=== PATIENT | male | born 1960 | race African-American/Black ===

== ENCOUNTER 2016-11-17 21:34 | Observation (INO) | payer MEDICAID ==
[~2016-11-17] VITALS: Ht 167.6 cm; Wt 110.0 kg
[~2016-11-17 21:34] MED LIST: CYCL-36 PO; IBUP800T23 PO; PERC10TA27 PO
[2016-11-17 21:36] VITALS: BP 132/75; PULSE 89; RESP 16; TEMP 100.4; O2SAT 95
--- NOTE | 2016-11-17 22:11 | PD ---
HPI Chief Complaint: Musculoskeletal Complaint Time Seen by Provider: 22:06 Travel History International Travel<30 days: No Contact w/Intl Traveler<30days: No Traveled to known affect area: No History of Present Illness HPI 56-year-old black male presents to emergency Department with complaints of right leg pain, swelling and redness. He states that he had several blisters on his feet approximately 2 weeks ago which she had broken. He states that he has had worsening pain and swelling since then. He denies drainage. 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 He wears leather boots. His feet have not been wet or soiled. He admits to feeling subjectively febrile , rundown, weak with general malaise. He denies any chest pain or shortness of breath. No nausea vomiting. No abdominal pain or diarrhea. He denies any hypertension or diabetes. He is not up-to-date with immunizations. Symptoms are moderate. There is no alleviating or precipitating factors. PFSH Past Medical History Narrative Medical BPH Cancer: No Cardiovascular Problems: No Diabetes: No Diminished Hearing: No Glaucoma: No Hepatitis: No Hiatal Hernia: No Hypertension: No Respiratory: Yes (sleep apnea) Thyroid Disease: No Tetanus Vaccination: Unknown Past Surgical History Narrative Surgical TURP Genitourinary Surgery: Yes (several direct vision internal urethrotomy) Pacemaker: No Other Surgery: Yes Social History Alcohol Use: No Tobacco Use: No Substance Use: No Allergies-Medications (Allergen,Severity, Reaction): Coded Allergies: No Known Allergies (Verified , 11/17/16) Reported Meds & Prescriptions Reported Meds & Active Scripts Active Review of Systems Except as stated in HPI: all other systems reviewed are Neg Physical Exam Narrative GENERAL: Well-developed, well-nourished in no apparent distress. Nontoxic appearing. HEAD: Normocephalic, atraumatic. EYES: Pupils equal round and reactive. Extraocular motions intact. No scleral icterus. No injection or drainage. ENT: Nose clear. Throat without erythema, tonsillar hypertrophy or exudate. Uvula midline. Airway patent. NECK: Trachea midline. Supple, nontender, moves head freely. No central bony tenderness or spasm. CARDIOVASCULAR: Regular rate and rhythm without murmurs, gallops, or rubs. RESPIRATORY: Clear to auscultation. Breath sounds equal bilaterally. No wheezes , rales, or rhonchi. GASTROINTESTINAL: Abdomen soft, non-tender, nondistended. No hepato-splenomegaly , or palpable masses. No guarding. EXTREMITIES: No clubbing, cyanosis. Examination of the right lower extremity reveals edema, erythema and warmth to the right lower leg from the knee down into the foot. He has healing ruptured blisters to the Lauren aspect of his foot and heel. He has intact dorsalis pedis pulses. The left lower extremity is unremarkable. BACK: Nontender without deformity. No flank tenderness. NEUROLOGICAL: Awake, alert and oriented x 3 .Cranial nerves grossly intact. Motor and sensory grossly within normal limits. Normal speech. Data Data Last Documented VS Vital Signs Date Time Temp Pulse Resp B/P Pulse Ox O2 Delivery O2 Flow Rate FiO2 11/17/16 21:36 100.4 89 16 132/75 95 Room Air Orders Us Leg Venous Doppler (11/17/16 21:57) Complete Blood Count With Diff (11/17/16 21:57) Comprehensive Metabolic Panel (11/17/16 21:57) Prothrombin Time / Inr (Pt) (11/17/16 21:57) Act Partial Throm Time (Ptt) (11/17/16 21:57) C-Reactive Protein (Crp) (11/17/16 21:57) Iv Access Insert/Monitor (11/17/16 21:57) Blood Culture (11/17/16 22:01) Vancomycin Inj (Vancomycin Inj) (11/17/16 22:15) Piperacil-Tazo 4.5 Gm Premix (Zosyn 4.5 (11/17/16 22:15) Tetanus/Diphtheria Tox Adult (Tetanus/Di (11/17/16 22:15) Ibuprofen (Motrin) (11/17/16 23:30) Labs Laboratory Tests Test 11/17/16 22:10 White Blood Count 9.9 TH/MM3 Red Blood Count 4.19 MIL/MM3 Hemoglobin 13.3 GM/DL Hematocrit 38.8 % Mean Corpuscular Volume 92.6 FL Mean Corpuscular Hemoglobin 31.7 PG Mean Corpuscular Hemoglobin 34.2 % Concent Red Cell Distribution Width 14.4 % Platelet Count 207 TH/MM3 Mean Platelet Volume 7.9 FL Neutrophils (%) (Auto) 65.0 % Lymphocytes (%) (Auto) 20.2 % Monocytes (%) (Auto) 11.9 % Eosinophils (%) (Auto) 2.3 % Basophils (%) (Auto) 0.6 % Neutrophils # (Auto) 6.4 TH/MM3 Lymphocytes # (Auto) 2.0 TH/MM3 Monocytes # (Auto) 1.2 TH/MM3 Eosinophils # (Auto) 0.2 TH/MM3 Basophils # (Auto) 0.1 TH/MM3 CBC Comment DIFF FINAL Differential Comment Prothrombin Time 10.3 SEC Prothromb Time International 0.9 RATIO Ratio Activated Partial 26.5 SEC Thromboplast Time Sodium Level 137 MEQ/L Potassium Level 4.1 MEQ/L Chloride Level 105 MEQ/L Carbon Dioxide Level 26.8 MEQ/L Anion Gap 5 MEQ/L Blood Urea Nitrogen 10 MG/DL Creatinine 1.08 MG/DL Estimat Glomerular Filtration 86 ML/MIN Rate Random Glucose 113 MG/DL Calcium Level 8.6 MG/DL Total Bilirubin 0.4 MG/DL Aspartate Amino Transf 18 U/L (AST/SGOT) Alanine Aminotransferase 25 U/L (ALT/SGPT) Alkaline Phosphatase 58 U/L C-Reactive Protein 6.63 MG/DL Total Protein 7.4 GM/DL Albumin 3.2 GM/DL MDM Medical Decision Making Medical Screen Exam Complete: Yes Emergency Medical Condition: Yes Medical Record Reviewed: Yes Interpretation(s) Right lower extremity ultrasound: Negative for DVT. Right inguinal lymph nodes upper limits of normal.CBC & BMP Diagram 11/17/16 22:10 CRP 6.63 Differential Diagnosis MDM: High Differential diagnoses: Abscess, folliculitis, cellulitis, lymphangitis, abrasion, contact dermatitis, DVT Narrative Course IV access is obtained. Routine laboratory test sent for analysis. 2 blood cultures, ultrasound of the lower extremity. Physician Communication Physician Communication The case has been discussed with Dr. MAYS who has agreed to admit the patient to the observation service. Diagnosis Primary Impression: Cellulitis of right leg Admitting Information Admitting Physician Requests: Observation Condition: Stable Maurizio Baxter Nov 17, 2016 22:11
[2016-11-17] MEDS ORDERED: VANCOMYCIN INJ 2,000 MG in SODIUM CHLORID 0.9% 500 ML INJ 500 ML IV ONE (22:15)
[2016-11-17] MEDS ORDERED: TETANUS/DIPHTHERIA TOXOID ADULT 0.5 ML VIAL IM ONE (22:15)
[2016-11-17] MEDS ORDERED: PIPERACIL-TAZO 4.5 GM PREMIX 100 ML IV ONE (22:15)
[2016-11-17 22:33] LABS: AUTOMATED NEUTROPHIL # 6.4 TH/MM3 (1.8-7.7); BASOPHIL # 0.1 TH/MM3 (0-0.2); BASOPHIL % 0.6 % (0.0-2.0); EOSINOPHIL # 0.2 TH/MM3 (0-0.4); EOSINOPHIL % 2.3 % (0.0-4.0); HEMATOCRIT 38.8 % (39.0-51.0); HEMO FLAGS DIFF FINAL; LYMPH % 20.2 % (9.0-44.0); MEAN CELL VOLUME 92.6 FL (80.0-100.0); MEAN CORPUSCULAR HEMOGLOBIN 31.7 PG (27.0-34.0); MEAN CORPUSCULAR HGB CONC 34.2 % (32.0-36.0); MONO % 11.9 % (0.0-8.0); PLATELET COUNT 207 TH/MM3 (150-450); RED BLOOD COUNT 4.19 MIL/MM3 (4.50-5.90); RED CELL DISTRIBUTION WIDTH 14.4 % (11.6-17.2); WHITE BLOOD COUNT 9.9 TH/MM3 (4.0-11.0)
[2016-11-17 22:41] LABS: APTT (PATIENT) 26.5 SEC (24.3-30.1); INTERNATIONAL NORMALIZED RATIO 0.9 RATIO; PROTHROMBIN TIME - PATIENT 10.3 SEC (9.8-11.6)
[2016-11-17 23:05] LABS: ANION GAP 5 MEQ/L (5-15); AST (GOT) 18 U/L (15-37); BICARBONATE 26.8 MEQ/L (21.0-32.0); BLOOD UREA NITROGEN 10 MG/DL (7-18); CHLORIDE 105 MEQ/L (98-107); GLOMERULAR FILTRATION RATE 86 ML/MIN (>89); POTASSIUM 4.1 MEQ/L (3.5-5.1); SODIUM (NA) 137 MEQ/L (136-145)
[2016-11-17 23:09] LABS: ALKALINE PHOSPHATASE 58 U/L (45-117); ALT (GPT) 25 U/L (12-78); TOTAL BILIRUBIN ADULT 0.4 MG/DL (0.2-1.0)
--- NOTE | 2016-11-17 23:29 | RADRPT ---
EXAM DATE/TIME: 11/17/2016 22:28 [place] COMPARISON: No previous studies available for comparison. INDICATIONS : Pain. MEDICAL HISTORY : Sleep apnea. SURGICAL HISTORY : Several direct vision internal urethrotomy. ENCOUNTER: Initial ACUITY: 1 week PAIN SCORE: 5/10 LOCATION: Right leg TECHNIQUE: Venous ultrasound of the leg was performed from the inguinal ligament to the proximal calf. Real-alejandra e, color Doppler and spectral tracing, compression and augmentation techniques were used. FINDINGS: There is normal compressibility of the deep venous system from the inguinal region to the proximal ca lf. No echogenic clot is seen in the lumen of the common femoral, femoral, popliteal, and posterior tibial veins. There is a normal response of the venous system to proximal and distal augmentation an d respiration. There are right inguinal lymph nodes that measure up to 8 x 19 x 27 mm. CONCLUSION: No DVT of the right lower extremity. Upper limits of normal nonspecific right inguinal lymph nodes. Charly Meredith MD on November 17, 2016 at 23:27 Board Certified Radiologist. This report was verified electronically.
[2016-11-17] MEDS ORDERED: IBUPROFEN 600 MG TAB PO ONE (23:30)
[2016-11-18] MEDS ORDERED: NALOXONE HCL 0.4 MG/ML AMP IV PRN
[2016-11-18] MEDS ORDERED: SODIUM CHLORIDE 0.9% FLUSH 5 ML FLUSH FLUSH PRN
--- NOTE | 2016-11-18 01:03 | HHI.HP ---
[facility] No Primary Care Physician Admission Diagnosis right lower extremity cellulitis Diagnoses: Chief Complaint: right leg pain and swelling Travel History International Travel<30 Days: No Contact w/Intl Traveler <30 Da: No Traveled to Known Affected Are: No History of Present Illness 56-year-old male with a history of BPH and sleep apnea presented with to the ED with complaints of redness and swelling to right lower extremity. Patient states the swelling and redness began about a week ago and continued to get worse. He does state he drives long distances for work near [place]. 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 He states he developed fevers yesterday. He denies any chest pain, sob, nausea or vomiting. No history of MRSA infection Patient does not have a PCP Review of Systems Constitutional: COMPLAINS OF: Fever, DENIES: Chills Respiratory: DENIES: Sputum production, Shortness of breath Cardiovascular: COMPLAINS OF: Lower Extremity Edema, DENIES: Chest pain, Palpitations Gastrointestinal: DENIES: Constipation, Diarrhea, Nausea, Vomiting Genitourinary: DENIES: Hematuria, Dysuria Musculoskeletal: DENIES: Back pain, Neck pain Integumentary: DENIES: Rash Hematologic/lymphatic: DENIES: Lymphadenopathy Immunologic/allergic: DENIES: Urticaria Neurologic: DENIES: Headache, Localized weakness Past Family Social History Past Medical History BPH Sleep apnea Past Surgical History TURP Urethral dilation Reported Medications Reported Meds & Active Scripts Active Allergies: Coded Allergies: No Known Allergies (Verified , 11/17/16) Active Ordered Medications Current Medications Medications (Trade) Dose Ordered Sig/[place] Route Start Time Stop Time Status Last Admin (NS Flush) 2 ml UNSCH PRN FLUSH 11/18/16 00:00 (NS Flush) 2 ml BID FLUSH 11/18/16 09:00 (Lovenox Inj) 40 mg Q24H SQ 11/18/16 09:00 Naloxone HCl 0.4 mg 0.4 mg UNSCH PRN IV 11/18/16 00:00 (Cleocin Inj/NS Inj) 106 ml @ 212 mls/hr Q6H IV 11/18/16 06:00 Family History Patient denies any family history Social History Tobacco use: denies Alcohol use: denies Illicit drug use: denies Physical Exam Vital Signs Vital Signs Date Time Temp Pulse Resp B/P Pulse Ox O2 Delivery O2 Flow Rate FiO2 11/17/16 21:36 100.4 89 16 132/75 95 Room Air Physical Exam GENERAL: This is a well-nourished, well-developed patient, in no apparent distress. SKIN: right lower extremity with erythema that stretches to knee HEAD: Atraumatic. Normocephalic. No temporal or scalp tenderness. EYES: Pupils equal round and reactive. ENT: Nose without bleeding, purulent drainage or septal hematoma. Airway patent. NECK: Trachea midline. No JVD CARDIOVASCULAR: Regular rate and rhythm without murmurs, gallops, or rubs. RESPIRATORY: Clear to auscultation. Breath sounds equal bilaterally. No wheezes , rales, or rhonchi. GASTROINTESTINAL: Abdomen soft, non-tender, nondistended. No hepato-splenomegaly , or palpable masses. No guarding. MUSCULOSKELETAL: Right lower extremity edema and tender, No calf tenderness. NEUROLOGICAL: Awake and alert. Motor and sensory grossly within normal limits. Normal speech. Laboratory Laboratory Tests Test 11/17/16 22:10 White Blood Count 9.9 Red Blood Count 4.19 Hemoglobin 13.3 Hematocrit 38.8 Mean Corpuscular Volume 92.6 Mean Corpuscular Hemoglobin 31.7 Mean Corpuscular Hemoglobin 34.2 Concent Red Cell Distribution Width 14.4 Platelet Count 207 Mean Platelet Volume 7.9 Neutrophils (%) (Auto) 65.0 Lymphocytes (%) (Auto) 20.2 Monocytes (%) (Auto) 11.9 Eosinophils (%) (Auto) 2.3 Basophils (%) (Auto) 0.6 Neutrophils # (Auto) 6.4 Lymphocytes # (Auto) 2.0 Monocytes # (Auto) 1.2 Eosinophils # (Auto) 0.2 Basophils # (Auto) 0.1 CBC Comment DIFF FINAL Differential Comment Prothrombin Time 10.3 Prothromb Time International 0.9 Ratio Activated Partial 26.5 Thromboplast Time Sodium Level 137 Potassium Level 4.1 Chloride Level 105 Carbon Dioxide Level 26.8 Anion Gap 5 Blood Urea Nitrogen 10 Creatinine 1.08 Estimat Glomerular Filtration 86 Rate Random Glucose 113 Calcium Level 8.6 Total Bilirubin 0.4 Aspartate Amino Transf 18 (AST/SGOT) Alanine Aminotransferase 25 (ALT/SGPT) Alkaline Phosphatase 58 C-Reactive Protein 6.63 Total Protein 7.4 Albumin 3.2 Date/Time Procedure Status Source Growth 11/17/16 22:10 Aerobic Blood Culture Received Blood Peripheral Pending 11/17/16 22:10 Anaerobic Blood Culture Received Blood Peripheral Pending Result Diagram: 11/17/160 11/17/162209 Imaging Last Impressions Lower Extremity Ultrasound 11/17/162156 Signed Impressions: Service Date/Time: Thursday, November 17, 2016 22:28 - CONCLUSION: No DVT of the right lower extremity. Upper limits of normal nonspecific right inguinal lymph nodes. Charly Meredith MD Assessment and Plan Problem List: (1) Cellulitis of right leg ICD Code: L03.115 Status: Acute Assessment and Plan 56-year-old male with a history of BPH and sleep apnea presented with: Cellulitis right leg Images: ultrasound negative for DVT -Clindamycin IV -Blood Cultures pending DVT prophylaxis: lovenox Written by Kiki BOOGIE, acting as scribe for Dr. Chen on 11/18/16 at 0425. All or portions of this note were transcribed by scribe [Kiki Lyn]. I, Dr. Silvestre Chen personally performed the history, physical exam, and medical decision making; and confirmed the accuracy of the information in the transcribed note. Authenticated by Dr. Silvestre Chen on 11/18/16 at 0425 Discussed Condition With Patient and RN Kiki Lyn Nov 18, 2016 01:03 Silvestre Chen MD Dec 22, 2016 08:09
[2016-11-18 01:13] VITALS: BP 110/63; PULSE 83; RESP 18; O2SAT 95
[2016-11-18 03:32] VITALS: BP 115/78; PULSE 80; RESP 18; O2SAT 99
[2016-11-18 05:52] LABS: AUTOMATED NEUTROPHIL # 4.5 TH/MM3 (1.8-7.7); BASOPHIL % 0.6 % (0.0-2.0); EOSINOPHIL # 0.2 TH/MM3 (0-0.4); EOSINOPHIL % 2.4 % (0.0-4.0); HEMATOCRIT 37.6 % (39.0-51.0); HEMO FLAGS DIFF FINAL; LYMPH % 26.9 % (9.0-44.0); LYMPHOCYTE # 2.1 TH/MM3 (1.0-4.8); MEAN CELL VOLUME 93.9 FL (80.0-100.0); MEAN CORPUSCULAR HEMOGLOBIN 31.7 PG (27.0-34.0); MEAN CORPUSCULAR HGB CONC 33.8 % (32.0-36.0); NEUT % 57.1 % (16.0-70.0); PLATELET COUNT 205 TH/MM3 (150-450); RED CELL DISTRIBUTION WIDTH 14.1 % (11.6-17.2); WHITE BLOOD COUNT 7.9 TH/MM3 (4.0-11.0)
[2016-11-18 05:59] LABS: BICARBONATE 28.2 MEQ/L (21.0-32.0); POTASSIUM 3.8 MEQ/L (3.5-5.1)
[2016-11-18] MEDS: CLINDAMYCIN INJ 900 MG in SODIUM CHLORIDE 0.9% INJ 100 ML IV SCH ×3 (06:53→17:14)
[2016-11-18 07:30] VITALS: BP 145/94; PULSE 99; RESP 18; TEMP 98.8; O2SAT 94
[2016-11-18] MEDS: SODIUM CHLORIDE 0.9% FLUSH 5 ML FLUSH FLUSH SCH (09:00)
[2016-11-18] MEDS ORDERED: BISACODYL 10 MG SUPP PR PRN (09:15)
[2016-11-18] MEDS ORDERED: DOCUSATE SODIUM 100 MG CAP PO PRN (09:15)
[2016-11-18] MEDS ORDERED: MAGNESIUM HYDROXIDE SUSP 30 ML CUP PO PRN (09:15)
[2016-11-18] MEDS ORDERED: ACETAMINOPHEN 325 MG TAB PO PRN (09:15)
[2016-11-18] MEDS ORDERED: ONDANSETRON HCL 4 MG/2 ML VIAL IVP PRN (09:15)
[2016-11-18] MEDS ORDERED: ACETAMINOPHEN/HYDROcodone 325 MG/5 MG TAB PO PRN (09:15)
[2016-11-18] MEDS: ENOXAPARIN SODIUM 40 MG/0.4 ML SYRINGE SQ SCH (10:34)
--- NOTE | 2016-11-18 10:48 | HHI.PR ---
Subjective Remarks Follow up for RLE cellulitis. The patient reports improvement overnight of swelling, however still painful with erythema/warmth. Afebrile overnight, Tmax 100.4 last night. He would like to go home today but is agreeable to staying another night for IV antibiotics. He is requesting release for work upon discharge. Objective Vitals Vital Signs Date Time Temp Pulse Resp B/P Pulse Ox O2 Delivery O2 Flow Rate FiO2 11/18/16 07:30 98.8 99 18 145/94 94 Room Air 11/18/16 03:32 80 18 115/78 99 Room Air 11/18/16 01:13 83 18 110/63 95 Room Air 11/17/16 21:36 100.4 89 16 132/75 95 Room Air Result Diagram: 11/18/164 11/18/164 Imaging Last Impressions Lower Extremity Ultrasound 11/17/162156 Signed Impressions: Service Date/Time: Thursday, November 17, 2016 22:28 - CONCLUSION: No DVT of the right lower extremity. Upper limits of normal nonspecific right inguinal lymph nodes. Charly Meredith MD Objective Remarks GENERAL: Well-nourished, well-developed middle aged male patient in [facility]. SKIN: Warm and dry. No rash. HEAD: Normocephalic. Atraumatic. EYES: Pupils equal and round. No scleral icterus. No injection or drainage. ENT: No nasal bleeding or discharge. Mucous membranes pink and moist. NECK: Supple. Trachea midline. CARDIOVASCULAR: Regular rate and rhythm. S1, S2 noted. No murmur appreciated. RESPIRATORY: No accessory muscle use. Clear to auscultation. Breath sounds equal bilaterally. GASTROINTESTINAL: Abdomen soft, non-tender, nondistended. Normoactive bowel sounds x4. MUSCULOSKELETAL: No obvious deformities. RLE with 2+ pitting edema, diffuse erythema/warmth, tender to palpation. LLE nontender without edema/erythema. NEUROLOGICAL: Awake and alert. No obvious cranial nerve deficits. Motor grossly within normal limits. 5/5 muscle strength in bilateral upper and lower extremities. Normal speech. PSYCHIATRIC: Appropriate mood and affect; insight and judgment normal. Medications and IVs Current Medications Medications (Trade) Dose Ordered Sig/[place] Route Start Time Stop Time Status Last Admin (NS Flush) 2 ml UNSCH PRN FLUSH 11/18/16 00:00 (NS Flush) 2 ml BID FLUSH 11/18/16 09:00 11/18/16 09:00 (Lovenox Inj) 40 mg Q24H SQ 11/18/16 09:00 11/18/16 10:34 Naloxone HCl 0.4 mg 0.4 mg UNSCH PRN IV 11/18/16 00:00 (Cleocin Inj/NS Inj) 106 ml @ 212 mls/hr Q6H IV 11/18/16 06:00 11/18/16 13:17 (Zofran Inj) 4 mg Q6H PRN IVP 11/18/16 09:15 (Dulcolax Supp) 10 mg DAILY PRN [place] 11/18/16 09:15 (Colace) 100 mg Q12H PRN PO 11/18/16 09:15 (Milk Of Magnesia Liq) 30 ml Q12H PRN PO 11/18/16 09:15 (Tylenol) 650 mg Q6H PRN PO 11/18/16 09:15 ([place] 5-325 Mg) 1 tab Q6H PRN PO 11/18/16 09:15 ([place] 7.5-325 Mg) 1 tab Q6H PRN PO 11/18/16 09:15 Urinary Catheter: No Vascular Central Line Catheter: No A/P Problem List: (1) Cellulitis of right leg ICD Code: L03.115 Status: Acute Assessment and Plan 56-year-old male with a history of BPH and sleep apnea presented with: Cellulitis right leg: WBC 9.9K, Tmax 100.4. Doppler U/S reviewed, negative for DVT. Continue IV Clinda. Blood cultures collected, NGTD. Elevate RLE. BPH/Sleep Apnea: chronic, stable. Not on home medications. Outpatient f/up with PCP. DVT prophylaxis: lovenox Written by Sarah Kessler, acting as scribe for Dr. Leung on 11/18/16 at 10: 48. Attending Statement The documentation accurately reflects the work performed [id number] by pr on at 10:48. Sarah Kessler PA-C Nov 18, 2016 10:48 Anurag Mobley MD Nov 23, 2016 13:11
[2016-11-18 16:22] VITALS: BP 122/66; PULSE 83; RESP 20; TEMP 98.5; O2SAT 94
[2016-11-18] MEDS: ACETAMINOPHEN/HYDROcodone 325 MG/7.5 MG TAB PO PRN (17:51)
[2016-11-19] MEDS: CLINDAMYCIN INJ 900 MG in SODIUM CHLORIDE 0.9% INJ 100 ML IV SCH ×3 (01:31→11:55)
[2016-11-19] MEDS: SODIUM CHLORIDE 0.9% FLUSH 5 ML FLUSH FLUSH SCH ×2 (01:31→09:12)
[2016-11-19 04:00] VITALS: BP 124/67; PULSE 67; RESP 22; TEMP 97.8; O2SAT 99
[2016-11-19] MEDS: ACETAMINOPHEN/HYDROcodone 325 MG/7.5 MG TAB PO PRN (07:40)
--- NOTE | 2016-11-19 07:51 | HHI.PR ---
Subjective Remarks Follow up for RLE cellulitis. The patient reports continued improvement of the edema/erythema/pain of the RLE overnight. He denies any fevers or chills. He has been able to ambulate without difficulty. He wants to go home. He plans to go back to work on Tuesday, requesting a work release. Objective Vitals Vital Signs Date Time Temp Pulse Resp B/P Pulse Ox O2 Delivery O2 Flow Rate FiO2 11/19/16 04:00 97.8 67 22 124/67 99 11/18/16 16:22 98.5 83 20 122/66 94 I/O 11/18/16 11/18/16 11/18/16 11/19/16 11/19/16 11/19/16 07:00 15:00 23:00 07:00 15:00 23:00 Output Total 350 ml Balance -350 ml Output Urine Total 350 ml Result Diagram: 11/18/16 0444 11/18/16 0444 Imaging Last Impressions Lower Extremity Ultrasound 11/17/16 7144 Signed Impressions: Service Date/Time: Thursday, November 17, 2016 22:28 - CONCLUSION: No DVT of the right lower extremity. Upper limits of normal nonspecific right inguinal lymph nodes. Charly Meredith MD Objective Remarks GENERAL: Well-nourished, well-developed middle aged male patient in [facility]. SKIN: Warm and dry. No rash. HEAD: Normocephalic. Atraumatic. NECK: Supple. Trachea midline. CARDIOVASCULAR: Regular rate and rhythm. S1, S2 noted. No murmur appreciated. RESPIRATORY: No accessory muscle use. Clear to auscultation. Breath sounds equal bilaterally. GASTROINTESTINAL: Abdomen soft, non-tender, nondistended. Normoactive bowel sounds x4. MUSCULOSKELETAL: No obvious deformities. RLE with trace edema, diffuse minimal erythema/warmth, nontender to palpation today, much improved. LLE nontender without edema/erythema. NEUROLOGICAL: Awake and alert. No obvious cranial nerve deficits. Motor grossly within normal limits. Normal speech. PSYCHIATRIC: Appropriate mood and affect; insight and judgment normal. Medications and IVs Current Medications Medications (Trade) Dose Ordered Sig/[place] Route Start Time Stop Time Status Last Admin (NS Flush) 2 ml UNSCH PRN FLUSH 11/18/16 00:00 (NS Flush) 2 ml BID FLUSH 11/18/16 09:00 11/19/16 01:31 (Lovenox Inj) 40 mg Q24H SQ 11/18/16 09:00 11/18/16 10:34 Naloxone HCl 0.4 mg 0.4 mg UNSCH PRN IV 11/18/16 00:00 (Cleocin Inj/NS Inj) 106 ml @ 212 mls/hr Q6H IV 11/18/16 06:00 11/19/16 06:29 (Zofran Inj) 4 mg Q6H PRN IVP 11/18/16 09:15 (Dulcolax Supp) 10 mg DAILY PRN [place] 11/18/16 09:15 (Colace) 100 mg Q12H PRN PO 11/18/16 09:15 (Milk Of Magnesia Liq) 30 ml Q12H PRN PO 11/18/16 09:15 (Tylenol) 650 mg Q6H PRN PO 11/18/16 09:15 ([place] 5-325 Mg) 1 tab Q6H PRN PO 11/18/16 09:15 ([place] 7.5-325 Mg) 1 tab Q6H PRN PO 11/18/16 09:15 11/19/16 07:40 Urinary Catheter: No Vascular Central Line Catheter: No A/P Problem List: (1) Cellulitis of right leg ICD Code: L03.115 Status: Acute Assessment and Plan 56-year-old male with a history of BPH and sleep apnea presented with: Cellulitis right leg: WBC 9.9K, Tmax 100.4 on 11/16. Doppler U/S reviewed, negative for DVT. Continue IV Clinda. Blood cultures collected, NGTD. Elevate RLE. Much improved, patient wants to go home. BPH/Sleep Apnea: chronic, stable. Not on home medications. Outpatient f/up with PCP. DVT prophylaxis: lovenox Discharge Planning Discharge patient to home Condition on discharge: Improved Heart Healthy Diet as tolerated Ad Lissa activity Rx written: Clinda [id number] Follow-up with primary care physician within 1 week Return to work Wednesday 11/22 Sarah Kessler PA-C Nov 19, 2016 07:51
[2016-11-19] MEDS ORDERED: CLIN1CAP5 PO (07:54)
--- NOTE | 2016-11-19 07:54 | HHI.DCPOC ---
Discharge Care Plan Diagnosis: (1) Cellulitis of right leg Goals to Promote Your Health * To prevent worsening of your condition and complications * To maintain your health at the optimal level Directions to Meet Your Goals Take your medications as prescribed Follow your dietary instruction Follow activity as directed Keep your appointments as scheduled Take your immunizations and boosters as scheduled If your symptoms worsen call your PCP, if no PCP go to Urgent Care Center or Emergency Room Smoking is Dangerous to Your Health. Avoid second hand smoke Call the 24-hour hour crisis hotline for domestic abuse at Sarah Kessler PA-C Nov 19, 2016 07:54
[2016-11-19 08:29] VITALS: BP 111/70; PULSE 79; RESP 20; TEMP 98.2; O2SAT 96
[2016-11-19] MEDS: ENOXAPARIN SODIUM 40 MG/0.4 ML SYRINGE SQ SCH (09:12)
[2016-11-19 12:20] VITALS: BP 112/75; PULSE 75; RESP 20; O2SAT 95
== END 2016-11-19 17:07 | disposition home or self-care (01) ==
LOC: NEPB 21:34 → NEDA 23:52 → NEDH 11-18 05:30 → NEPFCDU 11-18 15:44
PROVIDERS: ADMIT Hospitalist; ATTEND Hospitalist
DX: L03.115 Cellulitis of right lower limb (principal); R53.1 Weakness; G47.30 Sleep apnea, unspecified
CPT/HCPCS: 80048; 80053; 85025; 85610; 85730; 86140; 87040; 90471; 90714; 93971; 96365; 96366; 96368; 99284; G0378; J1650; J2543; J3370; J7040

== ENCOUNTER 2018-02-01 12:01 | Emergency (ER) | payer SELFPAY ==
[~2018-02-01] VITALS: Ht 167.6 cm; Wt 109.1 kg
[~2018-02-01 12:01] MED LIST changes: +CLIN150C14 PO; -CYCL-36 PO; -IBUP800T23 PO; -PERC10TA27 PO
[2018-02-01 12:05] VITALS: BP 130/84; PULSE 76; RESP 20; TEMP 98.6; O2SAT 98
--- NOTE | 2018-02-01 12:36 | PD ---
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 He denies back pain or hip pain. Pain is localized to the posterior thigh. No numbness or tingling. He is worse with hyperextension of the thigh and hip. Pain is 8 out of 10. Patient was able to work yesterday but now is worse today. He has not taken any medications for it he has no known drug allergies. PFSH Past Medical History Asthma: No Cancer: No Cardiovascular Problems: No COPD: No Diabetes: No Diminished Hearing: No Glaucoma: No Genitourinary: No Hepatitis: No Hiatal Hernia: No Hypertension: No Immune Disorder: No Musculoskeletal: No Neurologic: No Psychiatric: No Reproductive: No Respiratory: No Sleep Apnea: No Thyroid Disease: No Past Surgical History Genitourinary Surgery: Yes (several direct vision internal urethrotomy) Pacemaker: No Other Surgery: Yes Social History Alcohol Use: No Tobacco Use: No Substance Use: No Allergies-Medications (Allergen,Severity, Reaction): Coded Allergies: No Known Allergies (Verified , 11/17/16) Reported Meds & Prescriptions Reported Meds & Active Scripts Active Clindamycin (Clindamycin HCl) 150 Mg Cap 450 Mg PO Q6H Take 450mg (3tabs) 4x a day for total of 14days Review of Systems Except as stated in HPI: all other systems reviewed are Neg General / Constitutional: No: Fever Eyes: No: Visual changes HENT: No: Headaches Cardiovascular: No: Chest Pain or Discomfort Respiratory: No: Shortness of Breath Gastrointestinal: No: Abdominal Pain Genitourinary: No: Dysuria Musculoskeletal: Positive: Myalgias, Limited ROM, Pain Skin: No Rash Neurologic: No: Weakness Psychiatric: No: Depression Endocrine: No: Polydipsia Hematologic/Lymphatic: No: Easy Bruising Physical Exam Narrative GENERAL: Patient appears in no acute distress SKIN: Warm and dry. Normal color. Normal turgor. No ecchymosis HEAD: Atraumatic. Normocephalic. EYES: Pupils equal and round. No scleral icterus. No injection or drainage. ENT: No nasal bleeding or discharge. Mucous membranes pink and moist. NECK: Trachea midline. Supple and nontender CARDIOVASCULAR: Regular rate and rhythm. RESPIRATORY: No accessory muscle use. Clear to auscultation. Breath sounds equal bilaterally. MUSCULOSKELETAL: Extremities without clubbing, cyanosis, or edema. No obvious deformities. Patient has no tenderness to palpation in the lower lumbar spine or sacroiliac region. Hip is nontender. Patient has tenderness in the posterior thigh with localized swelling without ecchymosis noted. Negative neurovascular exam. Signs suggestive of a pulled hamstring. NEUROLOGICAL: Awake and alert. No obvious cranial nerve deficits. Motor grossly within normal limits. Five out of 5 muscle strength in the arms and legs. Normal speech. PSYCHIATRIC: Appropriate mood and affect; insight and judgment normal. Data Data Last Documented VS Vital Signs Date Time Temp Pulse Resp B/P (MAP) Pulse Ox O2 Delivery O2 Flow Rate FiO2 02/01/18 12:05 98.6 76 20 130/84 (99) 98 MDM Medical Decision Making Medical Screen Exam Complete: Yes Emergency Medical Condition: No Differential Diagnosis Left leg strain. Pulled hamstring. Muscle tear. Narrative Course A medical screening exam was performed: At the time of evaluation the presenting medical condition was determined not to be of an emergent nature. The patient was given the option of receiving additional care, but declined. Patient was given options for additional community resources from which to obtain care. The Patient Has Been advised to seek medical attention for their presenting complaint. The patient has been advised to return to the ER at any time if an emergent condition develops. Condition: Stable Juanjose West Feb 01, 2018 12:36
== END 2018-02-01 12:45 | disposition left against medical advice (07) ==
LOC: NEPK 12:01
DX: M79.652 Pain in left thigh (principal)
CPT/HCPCS: 99281

== ENCOUNTER 2018-04-10 03:50 | Emergency (ER) | payer MEDICAID ==
[~2018-04-10] VITALS: Ht 167.6 cm; Wt 115.0 kg
[2018-04-10 04:05] VITALS: BP 114/65; PULSE 62; RESP 16; TEMP 97.9; O2SAT 98
--- NOTE | 2018-04-10 04:45 | PD ---
HPI Chief Complaint: Fall Time Seen by Provider: 04:33 Travel History International Travel<30 days: No Contact w/Intl Traveler<30days: No Traveled to known affect area: No History of Present Illness HPI 57-year-old black male presents emergency department for evaluation of chronic right shoulder pain as well as an injury to his left knee 1 month ago. 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 He has not worked now in over a year because of chronic pain in his right shoulder. The patient also reports that he had fallen at the [employer] 1 month ago injuring his left knee. He has been taking Tylenol [id number] without relief. He states that he came in this evening because he could not tolerate the discomfort. He has not seen anyone regarding these injuries as of yet. He has not taking any other medications. Patient denies injury to his head, neck or back. Pain is moderate. No alleviating activity. Exacerbated by walking and movement. Denies sensory changes. PFSH Past Medical History Asthma: No Cancer: No Cardiovascular Problems: No COPD: No Diabetes: No Diminished Hearing: No Gastrointestinal Disorders: Yes Glaucoma: No Genitourinary: No Hepatitis: No Hiatal Hernia: No Hypertension: No Immune Disorder: No Implanted Vascular Access Dvce: No Musculoskeletal: No Neurologic: No Psychiatric: No Reproductive: No Respiratory: No Sleep Apnea: No Thyroid Disease: No Tetanus Vaccination: < 5 Years Past Surgical History Genitourinary Surgery: Yes (several direct vision internal urethrotomy) Pacemaker: No Other Surgery: Yes (ureatheal structure) Social History Alcohol Use: No Tobacco Use: No Substance Use: No Allergies-Medications (Allergen,Severity, Reaction): Coded Allergies: No Known Allergies (Verified Adverse Reaction, Unknown, 04/10/18) Reported Meds & Prescriptions Reported Meds & Active Scripts Active No Active Prescriptions or Reported Medications Review of Systems General / Constitutional: No: Fever Eyes: No: Visual changes HENT: No: Headaches Cardiovascular: No: Chest Pain or Discomfort Respiratory: No: Shortness of Breath Gastrointestinal: No: Abdominal Pain Genitourinary: No: Dysuria Musculoskeletal: Positive: Arthralgias, Limited ROM, Edema, Pain, No: Weakness , Cramping Skin: No Rash Neurologic: No: Weakness Psychiatric: No: Depression Endocrine: No: Polydipsia Hematologic/Lymphatic: No: Easy Bruising Physical Exam Narrative GENERAL: Well-developed, well-nourished in no acute distress. Nontoxic appearing. HEAD: Normocephalic, atraumatic. EYES: Pupils equal round and reactive. Extraocular motions intact. No scleral icterus. No injection or drainage. ENT: TMs clear without erythema. The external auditory canals clear. Nose: clear . Posterior pharynx is pink and moist. No tonsillar edema or exudate. Uvula midline. Airway patent. NECK: Trachea midline.Supple, nontender, moves head freely. No central bony tenderness or spasm. CARDIOVASCULAR: Regular rate and rhythm without murmurs, gallops, or rubs. RESPIRATORY: Clear to auscultation. Breath sounds equal bilaterally. No wheezes , rales, or rhonchi. GASTROINTESTINAL: Abdomen soft, non-tender, nondistended. No hepato-splenomegaly , or palpable masses. No guarding. EXTREMITIES: No clubbing, cyanosis, or edema. Examination of the right upper shoulder reveals no obvious joint effusion. No instability. No crepitus. He has decreased range of motion due to pain. Negative drop test. No pain in the clavicle or anterior component of the shoulder. No pain in the elbow, wrist or hand. Intact median/ulnar/radial nerves. The left upper extremity is unremarkable. The right lower extremity is unremarkable. The left lower extremity the patient complains of pain in the knee. Pain is mainly in the posterior portion of the knee. No gross instability. No obvious joint effusion. He has full range of motion. No anterior posterior drawer. No medial lateral collateral ligament instability. No pain in the hip, ankle or foot. BACK: Nontender without deformity or crepitance. No flank tenderness. Data Data Last Documented VS Vital Signs Date Time Temp Pulse Resp B/P (MAP) Pulse Ox O2 Delivery O2 Flow Rate FiO2 04/10/18 04:05 97.9 62 16 114/65 (81) 98 [facility] Medical Decision Making Medical Screen Exam Complete: Yes Emergency Medical Condition: Yes Medical Record Reviewed: Yes Differential Diagnosis MDM: High Differential diagnoses: Fracture, sprain, strain, dislocation, contusion, neurovascular injury Narrative Course A medical screening exam was performed: At the time of evaluation the presenting medical condition was determined not to be of an emergent nature. The patient was given the option of receiving additional care, but declined. Patient was given options for additional community resources from which to obtain care. The Patient Has Been advised to seek medical attention for their presenting complaint. The patient has been advised to return to the ER at any time if an emergent condition develops. Diagnosis Primary Impression: Encounter for medical screening examination Scripts No Active Prescriptions or Reported Meds Condition: Maurizio Traore Apr 10, 2018 04:45
== END 2018-04-10 06:48 | disposition left against medical advice (07) ==
LOC: NEPD 03:50
DX: M25.511 Pain in right shoulder (principal)
CPT/HCPCS: 99281